=== PATIENT | male | born 1965 | race Two or more races ===

== ENCOUNTER 2020-08-19 08:32 | Emergency (ER) | payer OTHER ==
[~2020-08-19] VITALS: Ht 177.8 cm; Wt 98.0 kg
--- NOTE | 2020-08-19 09:04 | NUR ---
PT IS A 54M WHO COMES IN COMPLAINING DRY MOUTH AFTER DINNER LAST NIGHT AND JUST NOT FEELING RIGHT. HE ALSO COMPLAINS THAT HIS ABDOMEN IS DISTENDED ALTHOUGH NO PAIN NOTED. LABS DRAWN AND EKG COMPLETED.CALL LIGHT WITHIN REACH. SPOUSE AT BEDSIDE.
[2020-08-19 09:16] LABS: BASOPHILS % (AUTO) 1 % (0-1); EOSINOPHILS % (AUTO) 1 % (1-7); LYMPHOCYTES % (AUTO) 16 % (22-44); MEAN CORPUSCULAR HEMOGLOBIN 27.5 pg (27.5-34.5); MEAN CORPUSCULAR HGB CONC 33.9 g/dL (33.2-36.2); MEAN PLATELET VOLUME 7.2 fL (7.4-10.4); MONOCYTES % (AUTO) 8 % (2-9); NEUTROPHILS % (AUTO) 74 % (42-75); PLATELET COUNT 453 x10^3/uL (130-400); RED BLOOD COUNT 5.71 x10^6/uL (4.38-5.82); RED CELL DISTRIBUTION WIDTH 13.2 % (9.4-14.8)
[2020-08-19 09:18] LABS: MD NO
[2020-08-19 09:23] LABS: ALANINE AMINOTRANSFERASE 210 U/L (12-78); ALBUMIN 4.2 g/dL (3.4-5.0); ANION GAP 7 mmol/L (5-15); CALCIUM 9.4 mg/dL (8.5-10.1); CHLORIDE 108 mmol/L (98-107); CREATININE 0.89 mg/dL (0.7-1.3)
[2020-08-19] MEDS ORDERED: ATOR20TA37 PO (09:23)
[2020-08-19] MEDS ORDERED: METO50TA82 PO (09:24)
[2020-08-19] MEDS ORDERED: OMEP-110 PO (09:24)
[2020-08-19 09:25] LABS: ALKALINE PHOSPHATASE 128 U/L (45-117); BILIRUBIN,TOTAL 0.6 mg/dL (0.2-1.0); TOTAL PROTEIN 8.2 g/dL (6.4-8.2)
[2020-08-19 10:53] VITALS: BP 157/88
--- NOTE | 2020-08-19 10:55 | NUR ---
Patient/Caregiver given discharge instructions and they have confirmed that they understand the instructions. Patient ambulatory with steady gait.
== END 2020-08-19 10:56 | disposition home or self-care (01) ==
LOC: ED 09:13
DX: K76.0 Fatty (change of) liver, not elsewhere classified (principal); F41.1 Generalized anxiety disorder; I10 Essential (primary) hypertension; E11.9 Type 2 diabetes mellitus without complications
CPT/HCPCS: 36415; 76700; 80053; 85025; 93005; 99285